=== PATIENT | male | born 1990 | race Caucasian/White ===

== ENCOUNTER 2019-02-15 21:49 | Emergency (ER) | payer SELFPAY ==
[~2019-02-15] VITALS: Ht 177.8 cm; Wt 90.7 kg
[2019-02-15] MEDS ORDERED: MORPHINE SULFATE 10 MG/ML VIAL. IM ONE (22:15)
--- NOTE | 2019-02-15 22:45 | RAD ---
EXAM: Left wrist, 3 views. HISTORY: Trauma. COMPARISON: None. FINDINGS: 3 views of the left wrist are obtained. There is a mildly displaced oblique fracture of the proximal to mid third metacarpal. IMPRESSION: Mildly displaced oblique fracture of the proximal to mid third metacarpal. Electronically signed by: Radha Jean MD (02/15/2019 10:42 PM) [facility]
[2019-02-15] MEDS ORDERED: HYDR-3164 PO (22:58)
--- NOTE | 2019-02-15 23:36 | RAD ---
EXAM: Left elbow, 3 views. HISTORY: Trauma. COMPARISON: None. FINDINGS: 3 views of the left elbow are obtained. There is no fracture, dislocation or subluxation. No elbow effusion is seen. IMPRESSION: No acute osseous finding. Electronically signed by: Radha Jean MD (02/15/2019 11:33 PM) [facility]
[2019-02-15 23:44] VITALS: BP 115/69
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
== END 2019-02-16 00:09 | disposition home or self-care (01) ==
LOC: ER 21:49
DX: S62.323A Displaced fracture of shaft of third metacarpal bone, left hand, initial encounter for closed fracture (principal); F41.9 Anxiety disorder, unspecified; F31.9 Bipolar disorder, unspecified; V87.8XXA Person injured in other specified noncollision transport accidents involving motor vehicle (traffic), initial encounter; Y93.89 Activity, other specified; Y92.89 Other specified places as the place of occurrence of the external cause; Y99.8 Other external cause status
CPT/HCPCS: 29125; 73080; 73110; 96372; 99284; J2270